=== PATIENT | male | born 1990 | race Caucasian/White ===

== ENCOUNTER 2017-03-01 20:31 | Emergency (ER) | payer SELFPAY ==
[2017-03-01] MEDS ORDERED: Adacel (T-DAP) 0.5 ML VIAL ONE (21:35)
[2017-03-01] MEDS ORDERED: Triple Antibiotic Oint 1 GM Packet ONE (21:35)
--- NOTE | 2017-03-01 22:07 | RAD ---
RIGHT HAND THREE VIEWS: 03/01/17 HISTORY: Crush injury to the distal fingers. COMPARISON: None. FINDINGS: Joint spaces are preserved. No fracture. No significant soft tissue swelling. IMPRESSION: No fracture. POS: [facility]
== END 2017-03-01 22:00 | disposition home or self-care (01) ==
LOC: MADERS 20:31
DX: S60.021A Contusion of right index finger without damage to nail, initial encounter (principal); S60.031A Contusion of right middle finger without damage to nail, initial encounter; S60.041A Contusion of right ring finger without damage to nail, initial encounter; W23.0XXA Caught, crushed, jammed, or pinched between moving objects, initial encounter
CPT/HCPCS: 90471; 90715

== ENCOUNTER → 2017-04-17 | Emergency (ER) | payer SELFPAY ==
[~2017-04-17] MED LIST: Diphenoxylate HCl/Atropine Tablet ONE; HYDROcodone/Acetaminophen 10/325 mg Tablet ONE; Naproxen 500 MG TAB ONE; Ondansetron ODT 4 MG TAB ONE
== END ==
LOC: MADERS 16:51
DX: R11.2 Nausea with vomiting, unspecified (principal); R19.7 Diarrhea, unspecified; I10 Essential (primary) hypertension
CPT/HCPCS: 99283; Q0162

== ENCOUNTER 2017-04-19 15:40 | Emergency (ER) | payer SELFPAY | END 2017-04-19 16:27 | disposition home or self-care (01) | LOC: MADERS 15:40 | DX: K52.9 Noninfective gastroenteritis and colitis, unspecified (principal); I10 Essential (primary) hypertension | CPT/HCPCS: 99283 ==

== ENCOUNTER 2017-11-03 19:33 | Emergency (ER) | payer SELFPAY | END 2017-11-03 20:07 | disposition home or self-care (01) | LOC: MADERS 19:33 | DX: H60.501 Unspecified acute noninfective otitis externa, right ear (principal) | CPT/HCPCS: 99282 ==

== ENCOUNTER 2017-11-06 15:45 | Emergency (ER) | payer SELFPAY | END 2017-11-06 16:25 | disposition home or self-care (01) | LOC: MADERS 15:45 | DX: H60.91 Unspecified otitis externa, right ear (principal); I10 Essential (primary) hypertension | CPT/HCPCS: 99283 ==

== ENCOUNTER 2024-02-10 22:11 | Emergency (ER) | payer SELFPAY ==
[2024-02-10] MEDS ORDERED: Ketorolac Tromethamine 30 MG (1 mL) VIAL ONE (22:53)
[2024-02-10] MEDS ORDERED: Dexamethasone 10 MG/ML VIAL ONE (22:53)
== END 2024-02-10 23:18 | disposition home or self-care (01) ==
LOC: MADERS 22:11
DX: H66.91 Otitis media, unspecified, right ear (principal)
CPT/HCPCS: 96372; 99282; J1100; J1885